=== PATIENT | female | born 1985 | race African-American/Black ===

== ENCOUNTER 2018-05-27 15:02 | Emergency (ER) | payer MEDICAID ==
[~2018-05-27] VITALS: Ht 170.2 cm; Wt 67.1 kg
[2018-05-27 15:21] VITALS: BP 155/100
[2018-05-27] MEDS ORDERED: DEXAMETHASONE SOD PHOS 10MG/1ML VIAL INJ IM ONE (17:45)
[2018-05-27] MEDS ORDERED: KETOROLAC TROMETH 60MG/2ML VIAL IM ONE (17:45)
== END 2018-05-27 18:05 | disposition home or self-care (01) ==
LOC: ER 15:02
DX: M54.16 Radiculopathy, lumbar region (principal); M79.18 Myalgia, other site
CPT/HCPCS: 96372; 99284; J1100; J1885

== ENCOUNTER 2018-12-12 23:51 | Emergency (ER) | payer MEDICAID ==
[~2018-12-12] VITALS: Ht 170.2 cm; Wt 65.8 kg
[2018-12-13] MEDS ORDERED: ONDANSETRON HCL 4 MG/2 ML VIAL IV ONE (01:45)
[2018-12-13] MEDS ORDERED: HYDROmorphone HCL 2 MG/ML VL IV ONE (01:45)
[2018-12-13 01:48] LABS: Urine Bacteria FEW /hpf (None Seen); Urine Blood 3+ /uL (Negative); Urine Specific Gravity 1.025 (1.001-1.035); Urine WBC 27 /hpf (0 - 5)
[2018-12-13 01:49] LABS: Eosinophils # (auto) 0.4 uL; Eosinophils % (auto) 6.7 % (0.0-7.0); Hemoglobin 9.3 g/dL (12.2-16.2); White Blood Cell 6.6 10^3/uL (4.4-10.8)
[2018-12-13 01:51] LABS: Basophils # (auto) 0.1 uL; Basophils % (auto) 0.9 % (0.0-2.0); Lymphocytes # (auto) 2.1 uL; Lymphocytes % (auto) 31.8 % (10.0-50.0); Mean Corpuscular Hemoglobin 26.5 pg (28.0-32.0); Mean Corpuscular Hgb Conc. 32.2 g/dL (32.0-36.0); Mean Corpuscular Volume 82.2 fL (80.0-100.0); Monocytes # (auto) 0.7 uL; Monocytes % (auto) 10.2 % (0.0-12.0); Neutrophils # (auto) 3.3 uL; Neutrophils % (auto) 50.4 % (37.0-80.0); Platelet Count (auto) 248 10^3/uL (140-450); Red Blood Cells 3.53 10^6/uL (4.0-5.20); Red Cell Distribution Width 18.1 % (11.8-14.3)
[2018-12-13 02:04] LABS: INR 0.98 (0.9-1.15); Partial Thromboplastin Time 25.5 sec (23.78-33.04); Prothrombin Time 10.5 sec (9.27-12.13)
[2018-12-13 02:07] LABS: Albumin 3.5 g/dL (3.4-5.0); Amylase 57 U/L (25-115); Calcium 8.8 mg/dL (8.5-10.1); Lipase 106 U/L (73-393); Potassium 3.4 mmol/L (3.5-5.1)
[2018-12-13 02:09] LABS: BUN/Creatinine Ratio 12.2
[2018-12-13 02:11] LABS: Bilirubin, Total 0.2 mg/dL (0.2-1.0); Total Protein 7.7 g/dL (6.4-8.2)
[2018-12-13] MEDS ORDERED: CEFTRIAXONE SODIUM 2 GM in D5W 5% 50 ML IV ONE (04:45)
[2018-12-13] MEDS ORDERED: cefTRIAXone 1GM/50ML D5W 50 ML IV ONE ×2 (05:00)
[2018-12-13 05:17] VITALS: BP 146/98
== END 2018-12-13 05:26 | disposition home or self-care (01) ==
LOC: ER 23:51
DX: N39.0 Urinary tract infection, site not specified (principal); N83.202 Unspecified ovarian cyst, left side
CPT/HCPCS: 36415; 74176; 80053; 81001; 81025; 82150; 83690; 85025; 85610; 85730; 96365; 96375; 99284; J0696; J1170; J2405; J7060